=== PATIENT | female | born 1935 | race American Indian/Alaskan Native ===

== ENCOUNTER 2018-03-09 08:37 | Day surgery (SDC) | payer MEDICARE, MEDICAID ==
[2017-12-08 11:22] VITALS: BMI 25.0
--- NOTE | 2018-03-09 12:21 | CP.SDSHP ---
Same Day Surgery H & P - History Proposed Procedure: us guided thyroid fna Pre-Op Diagnosis: thyroid nodules - Allergies Allergies: Allergies No Known Allergies Allergy (Verified 08/07/17 16:17) - Physical Exam Vital Signs: Vital Signs 03/09/18 09:05 Temperature 97.5 F L Pulse Rate 67 Respiratory 20 Rate Blood Pressure 151/82 H O2 Sat by Pulse 99 Oximetry - Impression Impression: 82 yo female w/ thyroid nodules, plan us guided thyroid fna - Date & Time Date: 03/09/18 Time: 11:30 Short Stay Discharge - Short Stay Discharge Admitting Diagnosis/Reason for Visit: NODULE Disposition: HOME/ ROUTINE
--- NOTE | 2018-03-09 12:22 | PCM.SURG1 ---
Surgeon's Initial Post Op Note - Surgeon's Notes Surgeon: Guevara Dave MD Geological Manager: None Type of Anesthesia: Local Pre-Operative Diagnosis: thyroid nodules Operative Findings: multinodular goiter Post-Operative Diagnosis: same Operation Performed: us guided thyroid fna x1 Specimen/Specimens Removed: fna of left 2.5 cm medial upper/mid pole nodule Estimated Blood Loss: EBL {In ML}: 0 Date of Surgery/Procedure: 03/09/18 Time of Surgery/Procedure: 11:45
[2018-03-09 13:29] VITALS: BP 151/74; PULSE 87; RESP 16; TEMP 97.7; O2SAT 100
--- NOTE | 2018-03-09 14:11 | US ---
PROCEDURE: ULTRASOUND-GUIDED THYROID BIOPSY CLINICAL HISTORY: 82-year-old female with suspicious thyroid nodules is referred to Interventional Radiology for ultrasound-guided thyroid FNA. COMPARISON: Thyroid ultrasound dated 12/12/2017 PROCEDURE: 1. Ultrasound-guided thyroid FNA x1. PRE-PROCEDURE FINDINGS: 1. Left 2.5 cm anteromedial mid/ upper pole nodule. POST-PROCEDURE FINDINGS: 1. No evidence of post-procedural complication. INTERVENTIONAL RADIOLOGIST: Guevara Dave M.D. (the attending was present for the entire procedure.) ANESTHESIA: None. MEDICATION: Lidocaine 1% for local subcutaneous analgesia. COMPLICATIONS: None. PROCEDURE DESCRIPTION AND FINDINGS: The risks, benefits, alternatives and possible complications of the procedure were fully discussed; all questions were answered and informed consent was obtained. The patient was brought into the interventional suite and a pre-procedure 'time-out' was performed. The patient was placed on the ultrasound table in the supine position and the neck was passively extended. The anterior neck was prepped and draped in the usual sterile fashion. Maximum sterile barrier precautions were maintained throughout the entire procedure. Preliminary focused ultrasound images of the thyroid demonstrate the previously identified nodule referred for biopsy. Following subcutaneous infiltration of lidocaine 1% for local analgesia, under ultrasound guidance, utilizing separate needles, multiple fine needle aspirations were performed of the 2.5 cm left anteromedial mid/ upper pole thyroid nodule, with real-time visualization of needle entry. The ultrasound images were permanently recorded and sent to the PACS. Adequate hemostasis was achieved utilizing manual compression. A sterile adhesive dressing was applied over the puncture site. The patient tolerated the procedure well without immediate post-procedure complications and was discharged home in stable condition. IMPRESSION: Successful ultrasound-guided fine needle aspiration of the 2.5 cm left anteromedial mid/ upper pole thyroid nodule.
== END 2018-03-09 13:20 | disposition home or self-care (01) ==
LOC: C.SPRAD 08:37
PROVIDERS: ATTEND Radiology Vascular & Interventional Radiology
DX: E04.2 Nontoxic multinodular goiter (principal)